=== PATIENT | male | born 1985 | race Caucasian/White ===

== ENCOUNTER → 2019-07-15 | Outpatient (CLI) | payer BC, OTHER ==
[2019-07-15 17:57] LABS: CHOLESTEROL 230.44 mg/dL (0-200); TRIGLYCERIDES 88 mg/dL (<150)
[2019-07-15 18:08] LABS: DIRECT LDL 174 mg/dL (<100)
== END ==
LOC: LAB 17:04
PROVIDERS: ATTEND Family Medicine
DX: E66.9 Obesity, unspecified (principal)
CPT/HCPCS: 36415; 80061